=== PATIENT | female | born 1955 | race Two or more races ===

== ENCOUNTER 2017-10-03 18:06 | Emergency (ER) | payer OTHER, MEDICAID ==
[~2017-10-03] VITALS: Ht 154.9 cm; Wt 72.6 kg
[2017-10-03 18:46] VITALS: BP 121/75
[2017-10-03] MEDS ORDERED: LIDOCAINE 1% HCL (LOCAL ANESTH.) INJ 20ML MDV IJ ONE (22:00)
[2017-10-03] MEDS ORDERED: TRIAMCINOLONE 40MG/ML 1ML VIAL IM ONE (22:00)
== END 2017-10-03 23:00 | disposition home or self-care (01) ==
LOC: ER 18:06
DX: M47.816 Spondylosis without myelopathy or radiculopathy, lumbar region (principal)
CPT/HCPCS: 20552; 96372; 99284; J2001; J3301